=== PATIENT | male | born 1995 | race Hispanic/Latino ===

== ENCOUNTER 2023-07-20 20:31 | Emergency (ER) | payer OTHER, BC ==
[2023-07-20 20:51] VITALS: BP 142/81; PULSE 82; RESP 18; TEMP 98.7; O2SAT 99
[2023-07-20 21:05] VITALS: BP 145/86; PULSE 82; RESP 18; TEMP 98.7; O2SAT 99
[2023-07-20] MEDS ORDERED: BOOSTRIX IM ONE (21:20)
[2023-07-20] MEDS ORDERED: ANCEF 2 GM/D5W 50ML 50 ML IV ONE (21:20)
[2023-07-20] MEDS: ANCEF IV STA (21:23)
[2023-07-20] MEDS: BOOSTRIX IM ONE (21:23)
[2023-07-20] MEDS ORDERED: TRIPLE ANTIBIOTIC OINTMENT PKT TP ONE (21:26)
[2023-07-20] MEDS ORDERED: MORPHINE SULFATE ONE (21:40)
[2023-07-20] MEDS: TORADOL IV STA (21:42)
[2023-07-20] MEDS: MORPHINE SULFATE IV STA (21:43)
[2023-07-20 21:55] VITALS: BP 122/74; PULSE 86; RESP 18; TEMP 98.7; O2SAT 99
[2023-07-20] MEDS ORDERED: TORADOL ONE (21:58)
== END 2023-07-20 21:55 | disposition home or self-care (01) ==
LOC: ER 20:31
DX: S68.627A Partial traumatic transphalangeal amputation of left little finger, initial encounter (principal); W23.0XXA Caught, crushed, jammed, or pinched between moving objects, initial encounter; Y93.89 Activity, other specified; Y92.89 Other specified places as the place of occurrence of the external cause; Y99.8 Other external cause status
CPT/HCPCS: 99284; 96365; 96375; 90471; 12002; 90715; 73130; J2270; J0690; J1885